=== PATIENT | female | born 1970 | race Caucasian/White ===

== ENCOUNTER → 2017-01-12 | Outpatient (CLI) | payer OTHER ==
--- NOTE | 2017-01-13 16:35 | KCIC ---
PROCEDURE Bilateral digital mammogram with CAD HISTORY Routine screening TECHNIQUE Bilateral digital routine views were obtained with computer-aided detection. COMPARISON September 20, 2007 FINDINGS Density C: heterogeneously dense fatty and fibroglandular tissue. There is asymmetric tissue density on the right seen with xCC view only and on the left seen in both the XCC view and the MLO view. There is no suspicious calcifications or areas of architectural distortion. IMPRESSION Asymmetric tissue densities bilaterally. Recommend spot CC views bilaterally as well as a spot MLO view of the left breast and true lateral view on the right. Ultrasound may be necessary as well. The patient and the clinical service will be contacted by the Radiology staff for further instructions. The breast tissue is dense. Mammography is less sensitive for abnormalities in areas of dense tissue. This study was interpreted with the benefit of Computerized Aided Detection (CAD). Mammography is not 100% sensitive in detecting breast cancer. Therefore, a self breast exam and a clinical breast exam are very important. A negative mammogram does not negate a clinically suspicious finding and should not result in a delay in biopsying a clinically suspicious abnormality. BI-RADS category 0: Incomplete. Electronically signed by: Eric Ramírez MD (Jan 13, 2017 16:33:16)
== END | disposition home or self-care (01) ==
LOC: KCIC MAMMO 16:20
PROVIDERS: ATTEND Family Medicine
DX: Z12.31 Encounter for screening mammogram for malignant neoplasm of breast (principal)
CPT/HCPCS: G0202; 77067

== ENCOUNTER → 2017-01-21 | Outpatient (CLI) | payer OTHER ==
--- NOTE | 2017-01-21 14:15 | KCIC ---
Bilateral diagnostic digital mammograms: Reason for examination: Nodular asymmetries in both breast on screening mammogram. Comparison is made to mammographic exam dated 01/12/2017. Coned compression views were obtained bilaterally and lateral view of the right breast was obtained.. There is still suggestion of some nodularity in the subareolar position of the right breast. Further evaluation with ultrasound will follow. The nodularity posterior laterally in the left breast does not appears focal on the present exam may reflect superimposed tissues. Further evaluation with ultrasound will follow. Impression: Continued presence of some nodularity in the anterior lateral right breast. No suspicious abnormalities seen in the left breast. Ultrasound to follow. BI-RADS category 0: Incomplete. Ultrasound to follow. Bilateral breast ultrasound: Ultrasound examination was performed bilaterally in the areas of mammographic concern. The right breast shows a small hypoechoic 4.1 millimeter lesion at the 7:30 position 3 centimeters from the nipple with some mild posterior acoustic enhancement consistent with some focal fibrocystic change. In the 10 o'clock position 2.5 centimeters from the nipple in probably corresponding to the area of mammographic concern, there is a hypoechoic partially septated lesion consistent with some fibrocystic change measuring approximately 1.3 centimeters in greatest dimension. No suspicious lesions are seen. No abnormal lymph nodes are seen in the right axilla. In the left breast, there is a small hypoechoic lesion with some mild posterior acoustic enhancement at the 3:30 position 3 centimeters from the nipple measuring 4.7 millimeters in greatest dimension. No other cystic or solid lesions are seen. No abnormal lymph nodes are seen in the left axilla. Impression: Small benign appearing fibrocystic type lesions seen bilaterally with the lesion at the 10 o'clock position of the right breast and the lesion at the 3:30 position of the left breast probably corresponding to the areas of mammographic concern. No suspicious lesion seen in either breast. Recommend 6 month followup ultrasound. BI-RADS category 3: Probably benign. This patient's information has been entered into a reminder system for the patient to be notified with the results of this examination and a target date for her next mammograms. Electronically signed by: Michaela Osborn MD (Jan 21, 2017 14:14:02)
== END | disposition home or self-care (01) ==
LOC: KCIC MAMMO 07:54
PROVIDERS: ATTEND Family Medicine
DX: R92.8 Other abnormal and inconclusive findings on diagnostic imaging of breast (principal)
CPT/HCPCS: 76641; G0204; 77066

== ENCOUNTER → 2017-07-20 | Outpatient (CLI) | payer OTHER ==
--- NOTE | 2017-07-20 08:47 | KCIC ---
Bilateral breast ultrasound: Reason for examination: Follow-up nodules. Comparison is made to previous study dated 01/21/2017. Ultrasound examination was performed with attention to the areas of previous sonographic concern. In the 7:30 position 3 cm from the nipple, there continues to be a small hypoechoic lesion which has a fibrocystic appearance and measures 3.4 mm in greatest dimension. This shows no significant change. In the 10:00 position 2.5 cm from the nipple, there continues to be a 1.1 cm hypoechoic lesion with partial septations with appearance suggesting a fibroadenoma and showing no significant interval change. There is some ductal ectasia in the retroareolar 10:00 position. No abnormal appearing lymph nodes are seen in the right axilla. There continues to be 5.6 mm cystic-appearing lesion in the 3:30 position 3 cm from the nipple no other cystic or solid lesions are seen. No abnormal appearing lymph nodes are seen in the axilla. IMPRESSION: Small fibrocystic lesion at the 7:30 position of the right breast without significant change. 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 Continued presence of a small cystic lesion at the 3:30 position of the left breast without significant change. No suspicious-appearing lesions are seen. Recommend reevaluation with ultrasound in 6 months at the time of bilateral mammograms. BI-RADS Category 3: Probably Benign. "Our facility is accredited by the [employer] Mammography [employer]." This patient's information has been entered into a reminder system for the patient to be notified with the results of her examination and a target date for the next mammogram. Electronically signed by: Lilibeth Osborn MD (07/20/2017 8:44 AM) [place] [id number]
== END | disposition home or self-care (01) ==
LOC: KCIC US 08:01
PROVIDERS: ATTEND Family Medicine
DX: N63 Unspecified lump in breast (principal)
CPT/HCPCS: 76641

== ENCOUNTER → 2018-01-28 | Outpatient (CLI) | payer OTHER | END | disposition home or self-care (01) | LOC: KCIC MAMMO 09:54 | DX: N63.10 Unspecified lump in the right breast, unspecified quadrant (principal) | CPT/HCPCS: 76641; 77066; G0279 ==

== ENCOUNTER → 2018-08-12 | Outpatient (CLI) | payer OTHER ==
--- NOTE | 2018-08-12 11:57 | KCIC ---
Bilateral breast ultrasound: Reason for examination: Follow-up nodules. Comparison is made to previous studies dated 07/20/2017 and 01/21/2017. Ultrasound examination was performed bilaterally with attention to the areas of previous concern and the axilla. The right breast continues to show a small 2 mm fibrocystic type lesion at the 7:30 position 3 cm from the nipple shows a slight decrease in size. There also continues to be a small 3.6 x 3.2 mm hyperechoic lesion in parallel orientation at the 10:00 position 2.5 cm from the nipple which has shown an interval decrease in size consistent with fibrocystic change. No abnormal appearing lymph nodes are seen in the axilla. The left breast continues to show a 5.4 mm hypoechoic lesion at the 3:30 position 3 cm from the nipple which has shown interval decrease in size. No other cystic or solid lesions are seen. No abnormal appearing lymph nodes are seen in the axilla. IMPRESSION: Continued presence of benign-appearing fibrocystic lesions bilaterally which show interval decrease in size. No suspicious abnormalities are seen. Recommend routine mammographic follow-up. BI-RADS Category 2: Benign. "Our facility is accredited by the [employer] Mammography [employer]." This patient's information has been entered into a reminder system for the patient to be notified with the results of her examination and a target date for the next mammogram. Electronically signed by: Lilibeth Osborn MD (08/12/2018 11:53 AM) [id number]
== END | disposition home or self-care (01) ==
LOC: KCIC US 10:59
PROVIDERS: ATTEND Family Medicine
DX: R92.8 Other abnormal and inconclusive findings on diagnostic imaging of breast (principal)
CPT/HCPCS: 76641

== ENCOUNTER → 2019-02-11 | Outpatient (CLI) | payer OTHER ==
--- NOTE | 2019-02-11 13:16 | KCIC ---
BILATERAL SCREENING MAMMOGRAM, 3-D History: Routine screening. Comparison: Bilateral mammogram January 28, 2018, January 12, 2017 and September 20, 2007. Bilateral breast ultrasound January 28, 2018 and August 12, 2018. Technique: MLO and CC digital tomosynthesis (3D) images obtained. Radiologist reviewed these images on dedicated workstation. Findings: Breast Tissue Density C : The breasts are heterogeneously dense, which may obscure small masses. Bilateral glandular nodularity is redemonstrated. There are no dominant masses, suspicious microcalcifications, or architectural distortion. IMPRESSION: No mammographic evidence of malignancy. Recommend routine screening. BI-RADS category 2: Benign findings. The images were reviewed with computer-aided detection. Patient information is entered into reminder system with a target due date for the next screening mammogram. Mammography is the most sensitive method for finding small breast cancers, but it does not detect them all and is not a substitute for careful clinical examination. A negative mammogram does not negate a clinically suspicious finding and should not result in delay in biopsying a clinically suspicious abnormality. "Our facility is accredited by the [employer] Mammography [employer]." Electronically signed by: Jered Veliz MD (02/11/2019 1:13 PM) [id number]
== END | disposition home or self-care (01) ==
LOC: KCIC MAMMO 09:53
PROVIDERS: ATTEND Family Medicine
DX: Z12.31 Encounter for screening mammogram for malignant neoplasm of breast (principal)
CPT/HCPCS: 77063; 77067

== ENCOUNTER → 2021-03-20 | Outpatient (CLI) | payer OTHER ==
--- NOTE | 2021-03-20 13:14 | KCIC ---
Bilateral digital screening mammograms with 3-D tomosynthesis: Reason for examination: Routine screening. Comparison is made to previous studies dated back to 01/12/2017. Bilateral mammograms in CC and oblique projections were obtained with 2-D imaging and 3-D tomosynthes is imaging on a Siemens Inspiration unit and reviewed on the workstation. Interpretation was made wit h the benefit of CAD. The skin and nipples show no abnormalities. No abnormal axillary lymph nodes are seen. The breast par enchyma is heterogeneously dense. (Breast density: Category C.) There is an 8 mm circumscribed nodule at the 10:00 C position of the right breast. There also appears to be a small 9 mm circumscribed nod ule at the 3:00 B position of the left breast. These may represent cysts but recommend further evalua tion with ultrasound. There are no suspicious calcifications seen. Impression: Small nodules bilaterally. Further evaluation with ultrasound is recommended. Your patient's mammogram demonstrates that she has dense breast tissue (breast density category C or D), which could hide abnormalities, and if she has other risk factors for breast cancer that have bee n identified, she might benefit from supplemental screening tests that may be suggested by you as her ordering physician. Dense breast tissue, in and of itself, is a relatively common condition. Therefo re, this information is not provided to cause undue concern, but rather to raise your awareness and t o promote discussion with your patient regarding the presence of other risk factors, in addition to d ense breast tissue. Your patient's mammography results will be sent to her. BI-RAD Category 0: Incomplete. Needs additional imaging evaluation. "Our facility is accredited by the [employer] Mammography Program." This patient's information has been entered into a reminder system for the patient to be notified wit h the results of her examination and a target date for the next mammogram. Electronically signed by: Lilibeth Osborn MD (03/20/2021 1:11 PM) [id number]
== END ==
LOC: KCIC MAMMO 07:52
PROVIDERS: ATTEND Family Medicine
DX: Z12.31 Encounter for screening mammogram for malignant neoplasm of breast (principal)
CPT/HCPCS: 77063; 77067

== ENCOUNTER → 2021-04-04 | Outpatient (CLI) | payer OTHER ==
--- NOTE | 2021-04-04 09:07 | KCIC ---
Bilateral breast ultrasound: Reason for examination: Nodular densities on screening mammogram. Comparison is made to mammographic exam dated 03/20/2021 and previous ultrasound examination dated . Ultrasound examination was performed bilaterally of the breasts and axilla. In the right breast at the 10:00 position 5 cm from the nipple and corresponding to the area of mammo graphic concern, there is a 1 cm hypoechoic circumscribed lesion consistent with a cyst and correspon ding to the mammographic abnormality. No other cystic or solid lesions are seen. No abnormal appearin g right axilla. In the left breast at the 3:30 position 3 cm from the nipple, there is a 7.4 mm partially septated cy stic lesion. There is also a 8.9 mm simple cyst at the retroareolar 2:30 position. No other cystic or solid nodules are seen. No abnormal appearing lymph nodes are seen in the left axilla. IMPRESSION: Bilateral breast cysts corresponding to mammographic findings. No suspicious abnormalities are seen. Recommend routine mammographic follow-up. BI-RADS Category 2: Benign. "Our facility is accredited by the [employer] Mammography [employer]." This patient's information has been entered into a reminder system for the patient to be notified wit h the results of her examination and a target date for the next mammogram. Electronically signed by: Lilibeth Osborn MD (04/04/2021 9:05 AM) [id number]
== END ==
LOC: KCIC US 08:04
PROVIDERS: ATTEND Family Medicine
DX: N60.01 Solitary cyst of right breast (principal); N60.02 Solitary cyst of left breast
CPT/HCPCS: 76641